=== PATIENT | female | born 1965 | race Caucasian/White ===

== ENCOUNTER 2017-07-08 15:28 | Observation (INO) | payer OTHER ==
[2017-07-08] VITALS (7 sets, daily range): BP systolic 139–188; BP diastolic 77–88; PULSE 77–89; RESP 15–20; TEMP 97.5–97.8; O2SAT 96–98
[~2017-07-08] VITALS: Ht 157.5 cm; Wt 81.0 kg
[~2017-07-08 15:28] MED LIST: AZIT250T3 PO; CO Q100C9; DAPA1TAB PO; LEVO75TA3 PO; LISI-519 PO; MAGN400T3 PO; METF1000 PO; MULT1CHW70; NORG10TA PO; PRAV40TA2 PO; PROP120C PO; RIBO100C; SUMA100T2 PO; VALA500T PO
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
[2017-07-08] MEDS ORDERED: ALUMINUM/MAGNESIUM/SIMETH 30 ML CUP PO ONE (16:00)
[2017-07-08] MEDS ORDERED: ONDANSETRON HCL 4 MG/2 ML VIAL IVP ONE (16:00)
[2017-07-08] MEDS ORDERED: SODIUM CHLORIDE 0.9% FLUSH 10 ML FLUSH IV FLUSH PRN (16:00)
[2017-07-08] MEDS ORDERED: LIDOCAINE VISCOUS 2% SOLN 15 ML UDC PO ONE (16:00)
[2017-07-08] MEDS ORDERED: ASPIRIN 81 MG CHEW TAB PO ONE (16:15)
[2017-07-08 16:24] LABS: AUTOMATED NEUTROPHIL # 7.2 TH/MM3 (1.8-7.7); BASOPHIL # 0.1 TH/MM3 (0-0.2); BASOPHIL % 1.2 % (0.0-2.0); EOSINOPHIL # 0.1 TH/MM3 (0-0.4); EOSINOPHIL % 1.4 % (0.0-4.0); HEMATOCRIT 41.3 % (35.0-46.0); HEMOGLOBIN 13.7 GM/DL (11.6-15.3); LYMPH % 24.5 % (9.0-44.0); LYMPHOCYTE # 2.6 TH/MM3 (1.0-4.8); MEAN CELL VOLUME 88.1 FL (80.0-100.0); MEAN CORPUSCULAR HEMOGLOBIN 29.1 PG (27.0-34.0); MEAN PLATELET VOLUME 9.4 FL (7.0-11.0); MONO % 6.2 % (0.0-8.0); MONOCYTE # 0.7 TH/MM3 (0-0.9); NEUT % 66.7 % (16.0-70.0); PLATELET COUNT 233 TH/MM3 (150-450); RED BLOOD COUNT 4.69 MIL/MM3 (4.00-5.30); RED CELL DISTRIBUTION WIDTH 12.9 % (11.6-17.2); WHITE BLOOD COUNT 10.7 TH/MM3 (4.0-11.0)
[2017-07-08 16:38] LABS: CHLORIDE 103 MEQ/L (98-107); SODIUM (NA) 136 MEQ/L (136-145)
[2017-07-08 16:45] LABS: ALBUMIN 3.3 GM/DL (3.4-5.0); BICARBONATE 26.9 MEQ/L (21.0-32.0); BLOOD UREA NITROGEN 10 MG/DL (7-18); CALCIUM 9.2 MG/DL (8.5-10.1); GLUCOSE,RANDOM 188 MG/DL (74-106)
[2017-07-08 16:48] LABS: ALT (GPT) 29 U/L (10-53); AST (GOT) 37 U/L (15-37); CREATININE 0.82 MG/DL (0.50-1.00); GLOMERULAR FILTRATION RATE 73 ML/MIN (>89)
[2017-07-08 16:49] LABS: TOTAL BILIRUBIN ADULT 0.3 MG/DL (0.2-1.0)
[2017-07-08 16:50] LABS: TOTAL PROTEIN 8.1 GM/DL (6.4-8.2)
[2017-07-08 16:51] LABS: ALKALINE PHOSPHATASE 90 U/L (45-117)
[2017-07-08 16:53] LABS: TROPONIN I LESS THAN 0.02 NG/ML (0.02-0.05)
--- NOTE | 2017-07-08 17:07 | RADRPT ---
EXAM DATE/TIME: 07/08/2017 15:57 [place] COMPARISON: No previous studies available for comparison. INDICATIONS : Abdominal pain. MEDICAL HISTORY : Cardiovascular disease. Hypertension. Diabetes mellitus type 2. SURGICAL HISTORY : Splenectomy. Cholecystectomy. ENCOUNTER: Initial ACUITY: 1 day PAIN SCORE: 10/10 LOCATION: Bilateral abdomen. FINDINGS: Supine and upright views of the abdomen were performed. There appears to be some debris distending th e gastric lumen. Surgical clips in the right upper abdominal quadrant characteristic of prior cholecy stectomy with additional clips projecting over the stomach itself. Bowel gas pattern is otherwise non obstructed. No pneumoperitoneum. CONCLUSION: 1. There appears to be debris in the partially distended stomach. This could represent an recent meal , however. 2. Otherwise, nonobstructive bowel gas pattern. Patient is status post cholecystectomy. Carlos Meredith MD on July 08, 2017 at 17:02 Board Certified Radiologist. This report was verified electronically.
[2017-07-08] MEDS: valACYclovir HCL 500 MG TAB PO SCH (21:01)
[2017-07-08] MEDS ORDERED: cloNIDine HCL 0.1 MG TAB PO ONE (23:00)
[2017-07-08] MEDS ORDERED: GLUCAGON 1 MG/ML VIAL OTHER PRN (23:00)
[2017-07-08] MEDS ORDERED: DEXTROSE 50% IN WATER 50 ML VIAL(D50) IV PUSH PRN (23:00)
[2017-07-09] VITALS: BP 114/64; PULSE 90; RESP 16; TEMP 99.5; O2SAT 97
[2017-07-09 04:00] VITALS: BP 121/65; PULSE 77; RESP 20; TEMP 97.1; O2SAT 96
[2017-07-09 08:00] VITALS: BP 114/69; PULSE 75; PULSE 80; RESP 18; TEMP 97.7; O2SAT 98
[2017-07-09] MEDS ORDERED: INSULIN ASPART SUPPLEMENTAL SCALE SQ SCH (08:00)
[2017-07-09] MEDS: valACYclovir HCL 500 MG TAB PO SCH (08:55)
--- NOTE | 2017-07-09 10:55 | HHI.DCPOC ---
Discharge Care Plan Diagnosis: (1) Abdominal pain Goals to Promote Your Health * To prevent worsening of your condition and complications * To maintain your health at the optimal level Directions to Meet Your Goals Take your medications as prescribed Follow your dietary instruction Follow activity as directed Keep your appointments as scheduled Take your immunizations and boosters as scheduled If your symptoms worsen call your PCP, if no PCP go to Urgent Care Center or Emergency Room Smoking is Dangerous to Your Health. Avoid second hand smoke Call the 24-hour hour crisis hotline for domestic abuse at Loyd Christine Jul 09, 2017 10:55
--- NOTE | 2017-07-09 11:04 | HHI.HP ---
[facility] Service [facility] Primary Care Physician Althea Abdalla MD Admission Diagnosis CP R/O HI Diagnoses: (1) Abdominal pain Diagnosis: Principal (2) Elevated lipase Diagnosis: Principal Chief Complaint: Abdominal pain Travel History International Travel<30 Days: No Contact w/Intl Traveler <30 Da: No Traveled to Known Affected Are: No History of Present Illness 51-year-old female with known history of hypertension, diabetes who presented to the emergency department because of abdominal pain. Patient states that she was in her normal state of health until yesterday at lunch when she was eating some leftover hot wings and approximately 30 minutes after she ate lunch she started developing a upper abdominal pain with flush feeling. She indicates the pain was 8/10 on a pain scale. She describes the pain as a same type of pain that she had when she had her acute cholecystitis. She waited about an hour and the pain did not improve and she thought it might be cardiac related since female have an atypical presentation, so she came to emergency department for evaluation. Patient was given Maalox and lidocaine with subsequent resolution of pain. She had workup done which indicated mildly elevated lipase level. Abdominal x-ray did indicate a mildly distended stomach which could have represented recently eaten a meal. Since the patient spent the hospital she has been asymptomatic. She denied any chest pain, radiation of pain, any nausea, vomiting, shortness of breath, dyspnea, lightheadedness. ER physician recommended the patient be observed in the hospital to rule out any underlying cardiac issue. Patient is feeling much better today. She wants to go home. She does not want to pursue any further cardiac testing. She states that she wants to follow-up with her 's machine rope maker Dr. Brumfield. Review of Systems Constitutional: COMPLAINS OF: Diaphoretic episodes Gastrointestinal: COMPLAINS OF: Abdominal pain Except as stated in HPI: all other systems reviewed are Neg Past Family Social History Past Medical History Hypertension Diabetes Hyperlipidemia Hypothyroidism Migraine cephalgia Past Surgical History Appendectomy Cholecystectomy Splenectomy Reported Medications Reported Meds & Active Scripts Active Propranolol ER 24 HR (Propranolol HCl) 120 Mg Cap 120 Mg PO DAILY Sumatriptan (Sumatriptan Succinate) 100 Mg Tab 100 Mg PO ONCE PRN If a satisfactory response has not been obtained at 2 hours, a second dose may be administered Valacyclovir (Valacyclovir HCl) 500 Mg Tab 500 Mg PO BID At first sign of symptoms, take twice a day for 3days Pravastatin 40 Mg Tab 40 Mg PO DAILY Lisinopril 5 Mg Tab 5 Mg PO DAILY Reported Farxiga (Dapagliflozin) Unknown Strength Tab Unknown Dose PO DAILY Trinessa Lo (Norgestimate-Ethinyl Estradiol) 0.18/0.215/0.25 mg-25 Mcg Tab 1 Tab PO DAILY Magnesium 400 Mg Tab 400 Mg PO DAILY Levothyroxine (Levothyroxine Sodium) 75 Mcg Tab 75 Mcg PO DAILY Co Q 10 (Coenzyme Q10 (Ubidecarenone)) 100 Mg Cap Metformin (Metformin HCl) 1,000 Mg Tab 1,000 Mg PO BIDPC With meals Allergies: Coded Allergies: diclofenac (Unverified Allergy, Intermediate, Nausea/Vomiting, 07/08/17) etodolac (Unverified Allergy, Intermediate, Nausea/Vomiting, 07/08/17) flurbiprofen (Unverified Allergy, Intermediate, Nausea/Vomiting, 07/08/17) ibuprofen (Unverified Allergy, Intermediate, Nausea/Vomiting, 07/08/17) indomethacin (Unverified Allergy, Intermediate, Nausea/Vomiting, 07/08/17) ketoprofen (Unverified Allergy, Intermediate, Nausea/Vomiting, 07/08/17) ketorolac (Unverified Allergy, Intermediate, Nausea/Vomiting, 07/08/17) naproxen (Unverified Allergy, Intermediate, Nausea/Vomiting, 07/08/17) oxaprozin (Unverified Allergy, Intermediate, Nausea/Vomiting, 07/08/17) Family History Reviewed and significant for mother still alive with diabetes, father from lung cancer Social History Patient quit smoking 25 years ago, she drinks alcohol rarely. Denies any illicit drug Physical Exam Vital Signs Vital Signs Date Time Temp Pulse Resp B/P (MAP) Pulse Ox O2 Delivery O2 Flow Rate FiO2 07/09/17 08:00 97.7 75 18 114/69 (84) 98 07/09/17 04:00 97.1 77 20 121/65 (83) 96 07/09/17 00:00 99.5 90 16 114/64 (81) 97 07/08/17 21:15 89 07/08/17 20:37 84 16 160/82 (108) 96 07/08/17 20:30 97.5 81 20 164/77 (106) 97 07/08/17 19:09 82 16 167/87 (113) 98 Room Air 07/08/17 18:05 77 15 139/79 (99) 98 Room Air 07/08/17 16:15 16 96 Room Air 07/08/17 15:31 97.8 79 16 188/88 (121) 98 Physical Exam GENERAL: Well-developed, well-nourished, in no acute distress. alert and orientated HEENT: Head is normocephalic without any lesions or masses noted. Facial features are symmetric. Eyes: Pupils equal round reactive to light. Extraocular muscles are intact. Conjunctivae were clear. Oropharyngeal: Pharynx without any erythema edema. Tongue is midline without deviation. Buccal mucosa is moist without any masses or lesions NECK: Supple without any masses. Trachea midline no deviation. No JVD, no bruits are appreciated CARDIAC: Regular rhythm, regular rate. S1/S2 are heard. No murmurs gallops or rubs. LUNGS: Clear to auscultation bilaterally. No wheeze, rhonchi or rales. No use of accessory muscles on inspiration or expiration. ABDOMEN: Soft, nontender. Nondistended. Bowel sounds heard in all 4 quadrants. No organomegaly or masses. Negative rebound, negative guarding EXTREMITIES: No edema, pulses are equal bilaterally. No cyanosis or clubbing NEUROLOGY: Mood and affect appear appropriate. Cranial nerves II through XII grossly intact. Muscle strength 5/5 in upper and lower extremities bilaterally. Deep tendon reflexes are 2+ in upper and lower extremities bilaterally. Laboratory Laboratory Tests Test 07/08/17 16:00 07/08/17 20:15 07/09/17 05:18 White Blood Count 10.7 Red Blood Count 4.69 Hemoglobin 13.7 Hematocrit 41.3 Mean Corpuscular Volume 88.1 Mean Corpuscular Hemoglobin 29.1 Mean Corpuscular Hemoglobin Concent 33.0 Red Cell Distribution Width 12.9 Platelet Count 233 Mean Platelet Volume 9.4 Neutrophils (%) (Auto) 66.7 Lymphocytes (%) (Auto) 24.5 Monocytes (%) (Auto) 6.2 Eosinophils (%) (Auto) 1.4 Basophils (%) (Auto) 1.2 Neutrophils # (Auto) 7.2 Lymphocytes # (Auto) 2.6 Monocytes # (Auto) 0.7 Eosinophils # (Auto) 0.1 Basophils # (Auto) 0.1 CBC Comment DIFF FINAL Differential Comment Blood Urea Nitrogen 10 Creatinine 0.82 Random Glucose 188 Total Protein 8.1 Albumin 3.3 Calcium Level 9.2 Alkaline Phosphatase 90 Aspartate Amino Transf (AST/SGOT) 37 Alanine Aminotransferase (ALT/SGPT) 29 Total Bilirubin 0.3 Sodium Level 136 Potassium Level 4.3 Chloride Level 103 Carbon Dioxide Level 26.9 Anion Gap 6 Estimat Glomerular Filtration Rate 73 Total Creatine Kinase 70 Troponin I LESS THAN 0.02 LESS THAN 0.02 LESS THAN 0.02 Lipase 462 393 Result Diagram: 07/08/17 1600 07/08/17 1600 Imaging Last Impressions Abdomen X-Ray 07/08/17 0000 Signed Impressions: Service Date/Time: Saturday, July 08, 2017 15:57 - CONCLUSION: 1. There appears to be debris in the partially distended stomach. This could represent an recent meal, however. 2. Otherwise, nonobstructive bowel gas pattern. Patient is status post cholecystectomy. MD Chandler Auguste VTE Risk Assessment Caprini VTE Risk Assessment: No/Low Risk (score <= 1) Caprini Risk Assessment Model Point Value = 1 Point Value = 2 Point Value = 3 Point Value = 5 Age 41-60 Minor surgery BMI > 25 kg/m2 Swollen legs Varicose veins or History of unexplained or recurrent spontaneous Oral contraceptives or hormone replacement Sepsis (< 1 month) Serious lung disease, including pneumonia (< 1 month) Abnormal pulmonary function Acute myocardial infarction Congestive heart failure (< 1 month) History of inflammatory bowel disease Medical patient at bed rest Age 61-74 Arthroscopic surgery Major open surgery (> 45 min) Laparoscopic surgery (> 45 min) Malignancy Confined to bed (> 72 hours) Immobilizing plaster cast Central venous access Age >= 75 History of VTE Family history of VTE Factor V Leiden Prothrombin [id number] Lupus anticoagulant Anticardiolipin antibodies Elevated serum homocysteine Heparin-induced thrombocytopenia Other congenital or acquired thrombophilia Stroke (< 1 month) Elective arthroplasty Hip, pelvis, or leg fracture Acute spinal cord injury (< 1 month) Prophylaxis Regimen Total Risk Factor Score Risk Level Prophylaxis Regimen 0-1 Low Early ambulation 2 Moderate Order ONE of the following: *Sequential Compression Device (SCD) *Heparin 5000 units SQ BID 3-4 Higher Order ONE of the following medications: *Heparin 5000 units SQ TID *Enoxaparin/Lovenox 40 mg SQ daily (WT < 150 kg, CrCl > 30 mL/min) *Enoxaparin/Lovenox 30 mg SQ daily (WT < 150 kg, CrCl > 10-29 mL/min) *Enoxaparin/Lovenox 30 mg SQ BID (WT < 150 kg, CrCl > 30 mL/min) AND/OR *Sequential Compression Device (SCD) 5 or more Highest Order ONE of the following medications: *Heparin 5000 units SQ TID (Preferred with Epidurals) *Enoxaparin/Lovenox 40 mg SQ daily (WT < 150 kg, CrCl > 30 mL/min) *Enoxaparin/Lovenox 30 mg SQ daily (WT < 150 kg, CrCl > 10-29 mL/min) *Enoxaparin/Lovenox 30 mg SQ BID (WT < 150 kg, CrCl > 30 mL/min) AND *Sequential Compression Device (SCD) Assessment and Plan Assessment and Plan Abdominal pain with mildly elevated lipase, resolved -Patient does have increased risk factors for coronary artery disease with atypical presentation to include age, hypertension, hyperlipidemia, diabetes -Patient has been ruled out for acute coronary event with serial cardiac enzymes are negative, serial EKG shows sinus rhythm without any changes -Patient did have mildly elevated lipase which has returned to normal at this time -Abdominal x-ray did indicate a distended stomach. -Pain was clinically improved after Maalox and lidocaine -Patient was offered further cardiac testing with stress test, patient deferring at this time and wants to follow-up with outpatient machine rope maker Dr. Brumfield for further workup. Hypertension, hyperlipidemia -Continue home medication Diabetes -Accu-Cheks with sliding scale insulin DVT prevention -Low risk, early ambulation Discharge disposition Discharge home in stable condition Activity: Ad felicity. Diet: Diabetic diet Medication per medication reconciliation Follow-up with primary medical doctor in 1 week Problem Qualifiers (1) Abdominal pain: Qualified Codes: R10.10 - Upper abdominal pain, unspecified Loyd Christine Jul 09, 2017 11:04
--- NOTE | 2017-07-09 16:28 | EKG ---
Date Performed: 07/08/2017 Time Performed: 15:44:05 PTAGE: 51 years EKG: Sinus rhythm NORMAL ECG PREVIOUS TRACING : 07/08/2010 11.55 Since the previous tracing, no significant change noted DOCTOR: Ab Henning Interpretating Date/Time 07/09/2017 16:25:16
--- NOTE | 2017-07-09 16:28 | EKG ---
Date Performed: 07/09/2017 Time Performed: 10:44:21 PTAGE: 51 years EKG: Sinus rhythm POSSIBLE LEFT ATRIAL ENLARGEMENT BORDERLINE ECG PREVIOUS TRACING : 07/08/2017 15.44 Since the previous tracing, no significant change noted DOCTOR: Ab Henning Interpretating Date/Time 07/09/2017 16:25:24
== END 2017-07-09 12:13 | disposition home or self-care (01) ==
LOC: PHED 15:28 → PHEDA 18:04 → PH3A 20:31
PROVIDERS: ADMIT Hospitalist; ATTEND Hospitalist
DX: R10.10 Upper abdominal pain, unspecified (principal); R07.89 Other chest pain; R74.8 Abnormal levels of other serum enzymes; I10 Essential (primary) hypertension; E11.9 Type 2 diabetes mellitus without complications; E78.5 Hyperlipidemia, unspecified; E03.9 Hypothyroidism, unspecified; Z79.84 Long term (current) use of oral hypoglycemic drugs; Z87.891 Personal history of nicotine dependence; Z90.81 Acquired absence of spleen; Z80.1 Family history of malignant neoplasm of trachea, bronchus and lung; Z83.3 Family history of diabetes mellitus
CPT/HCPCS: 74019; 80053; 82550; 83690; 84484; 85025; 93005; 96374; 96375; 99285; G0378; J2405